=== PATIENT | male | born 1950 | race Caucasian/White ===

== ENCOUNTER 2024-09-27 09:34 | Outpatient (AMB) | payer MEDICARE, OTHER, SELFPAY ==
--- NOTE | 2024-09-27 09:55 | A.OFFPC_ITS ---
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 Intake Note: patient is scheduled for new patient visit to establish care with pcp patient decline to answer questionare [place] Administrator Required: No Allergies No Known Allergies Allergy (Verified 09/27/24 09:57) Medication List - Last Reconciled 09/27/24 by Eddie Kauffman MD clonidine HCl 0.1 mg PO BEDTIME hydralazine 50 mg PO TID insulin lispro protamin-lispro 100 unit/mL (50-50) 5 units subcut DAILY lisinopril 20 mg PO DAILY Tobacco use date assessed: 09/27/24 Fall risk assessment: No Falls in past year Last assessed Fall Risk: 09/27/24 Dental Screening Dental Screen Date: 09/27/24 Did you have a dental visit in the last 12 months?: Yes Did you have a dental problem in the last 6 months where you did not have access to dental care?: No Was dental information given to patient?: No 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 ?? Prior PCP:?Mirza Marr [place] Last office visit/CPE:? Acute issue(s):? A1c 6.7%. On Lantus and takes 15-17 units QPM & Lispro and counts carbs. 2-8. Morning BS 80-130 BP is too high L ear feels blocked - recently received Augmentin and then prednisone Saw ENT Dr Gentry Ferreira ENT & has follow-up ?? PMHx:? DM1, HTN, SocHx:? Moved from [place] this year, PFSH Family History (Updated 09/27/24 @ 10:12 by CALEB Rehman) Sister FH: mental illness Social History (Updated 09/27/24 @ 10:12 by CALEB Rehman) Housing: Condominium Patient Tobacco Use Status: Never used Tobacco e-Cigarette/Vaping Use: Never Used Second Hand Smoke Exposure: No service: No Current occupational status: retired Current occupational exposures/hazards: No Cognitive needs: Yes Hearing needs: No Vision needs: Yes Questionnaire PHQ-9 Over the last 2 weeks, how often have you been bothered by any of the following problems? 29029 - PHQ-9 Billing: Patient declined-do not bill Source: Developed by Drs. Kamari Tejada, Brenda Mckinney, Troy Harden and colleagues, with an educational oni from [employer] Thrive Questionnaire Date Thrive assessed: 09/27/24 I am a: Patient DIVYA-7 AMB Questionnaire DIVYA-7 Date DIVYA - 7 assessed: 09/27/24 Source: Developed by Drs. Kamari Tejada, Brenda Mckinney, Troy Harden and colleagues, with an educational oni from [employer] Review of Systems Const Denies chills, Denies fatigue, Denies fever(s), Denies headache(s) and Denies weakness ENT Denies dizziness and Denies headache(s) Card Denies chest pain, Denies lightheadedness, Denies dyspnea and Denies other (Palpitations) Resp Denies cough, Denies dyspnea, Denies wheezing and Denies other ( shortness of breath) Musc Denies numbness and Denies tingling Neuro Denies dizziness, Denies headache(s), Denies numbness, Denies tingling, Denies paresthesias and Denies weakness Psych Denies anxiety and Denies depression Endo Denies fatigue Aller/Immun Denies wheezing Physical exam (Primary Care) Vital Signs: Last Vital Signs Temp 98.1 F 09/27/24 10:14 Pulse 71 09/27/24 10:14 Resp 12 09/27/24 10:14 BP 170/70 H 09/27/24 10:14 Pulse Ox 95 09/27/24 10:14 Oxygen Delivery Method Room Air 09/27/24 10:14 BMI result Body Mass Index 26.1 Tobacco/Smoking Status: Tobacco use Status Tobacco use date assessed 09/27/24 09/27/24 10:16 Patient Tobacco Use Status Never used Tobacco 09/27/24 10:16 e-Cigarette/Vaping Use Never Used 09/27/24 10:16 Thrive Assessment: Date of Thrive Assessment Date Thrive assessed 09/27/24 09/27/24 10:16 Const General: no acute distress and well developed Nutritional Appearance: well nourished Orientation/consciousness: patient oriented x3 HENMT Head: Yes normocephalic and Yes atraumatic Eyes General: appearance normal, both eyes and all related structures Pupils: Equal, round and reactive pupils present EOM: EOMs intact bilaterally Resp Effort & Inspection: normal respiratory effort Auscultation: clear to auscultation bilaterally Cardio Rate: regular rate Rhythm: regular rhythm Heart sounds: S1 normal heart sound present, S2 normal heart sound present, no gallops, no murmurs and no rubs Neuro General: patient oriented x3 and gait normal Cranial nerves: Yes Equal, round and reactive pupils present Psych Affect: normal affect Coding Level of Care Code New Pt Level 4 (80672) Diagnoses Hypertension I10 Type 1 diabetes E10.9 Discomfort of left ear H92.02 Sinusitis J32.9 Laboratory exam ordered as part of routine general medical examination Z00.00 Assessment & Plan Assessment & Plan (1) Hypertension: Code(s): I10 - Essential (primary) hypertension Category: Medical Plan: Blood?pressure?is?high?in?office.??Goal?is?less?than?140/90. Patient?states?that?he?has?white?coat?syndrome?and?that?his?labs?are?well?contro lled?at?home. He? will?keep?a?log?of?his?blood?pressures?and?bring?these?to?his?next?appointment. (2) Type 1 diabetes: Code(s): E10.9 - Type 1 diabetes mellitus without complications Category: Medical Plan: Patient?says?he?type?1?diabetes.??Awaiting?his?prior?records. Patient?is?taking?Lantus?and?lispro. He?declines?referral?to?an?sales expert A1c?6.7%?is?good?control?and?goal?is?less?than?7.0%. Morning?blood?sugars?are?running?from?80-130?appear?controlled. He?will?continue?current?medication?regimen Will?continue?to?monitor (3) Discomfort of left ear: Code(s): H92.02 - Otalgia, left ear Category: Medical Plan: Patient?has?serous?otitis?media?bilaterally.??No?erythema?or?pus. Followed?by?ENT He?has?F lonase?and?I?advised?nasal?saline?but?not?within?30?minutes?of?his?nasal?steroid . Also?advised?Valsalva?maneuver?of?the?nose?and?he?chews?gum. Follow-up?with?ENT?as?recommended (4) Sinusitis: Code(s): J32.9 - Chronic sinusitis, unspecified Category: Medical Plan: As?above,?patient?ear?symptoms?secondary?to?chronic?sinusitis Follow-up?with?ENT?and?continue?above?recommendations. (5) Laboratory exam ordered as part of routine general medical examination: Code(s): Z00.00 - Encounter for general adult medical examination without abnormal findings Category: Medical Plan: Check?labs Orders: Orders Prostate Specific Antigen Scr Today Z12.5 - Encounter for screening for malignant neoplasm of prostate TSH reflex Free T4 Today Z00.00 - Encounter for general adult medical examination without abnormal findings Vitamin B12 and Folate Today E53.8 - Deficiency of other specified B group vitamins LDL Cholesterol Direct Today E78.5 - Hyperlipidemia, unspecified, Z00.00 - Encounter for general adult medical examination without abnormal findings Complete Blood Count Auto Diff Today Z00.00 - Encounter for general adult medical examination without abnormal findings Microalbumin, Random (w Creat) Today I10 - Essential (primary) hypertension Lipid Panel Today Z00.00 - Encounter for general adult medical examination without abnormal findings UA and rflx microscopic Today Z00.00 - Encounter for general adult medical examination without abnormal findings Vitamin D 25-OH Total Today E55.9 - Vitamin D deficiency, unspecified Comprehensive Met. Panel Today Z00.00 - Encounter for general adult medical examination without abnormal findings
[2024-09-27 10:14] VITALS: BP 170/70; PULSE 71; RESP 12; TEMP 36.7; O2SAT 95; BMI 26.1
[2024-09-27 10:30] VITALS: BP 160/84
--- OUTSIDE RECORDS SUMMARY | 2024-09-27 10:35 | XMS_ITS | Clinical Summary ---
Author Organization [facility] Address [address] [place] [address] Care Team Providers Care Poultry Picker Name Role Phone Unavailable Primary Care Provider Unavailabl e Allergies No known active allergies Medications Medication Sig Dispensed Refills Start Date End Date Status fluticasone (FloNASE) 50 mcg/spray nasal sprayIndications:Eusta chian tube dysfunction, bilateral 2 sprays into each nostril 2 times a day. 1 each 3 09/18/2024 Active Active Problems No known active problems Encounters Date Type Department Care Team Description 09/18/2024 9:45 AM EDT Clinical Support [facility] [place] [phone] Elton Rinaldi MD Eustachian tube dysfunction, bilateral (Primary Dx); Bilateral impacted cerumen; Abnormal auditory perception, left from Last 3 Months Social History Tobacco Use Types Packs/Day Years Used Date Smoking Tobacco: Never Assessed Sex and Gender Information Value Date Recorded Sex Assigned at Male 09/12/2024 1:43 PM EST Gender Identity Male 09/12/2024 1:43 PM EST Sexual Orientation Not on file Plan of Treatment Upcoming Encounters Date Type Department Care Team (Late st Contact Info) Description 10/16/2024 8:45 AM EDT Clinical Support [facility] [address] [phone] Tiffani Rodriguez Au.D [address] [place] [phone] 10/16/2024 9:30 AM EDT Office Visit [facility] [place] [phone] Elton Rinaldi MD [address] [place], [place] [id number] Health Maintenance Due Date Last Done Comments Hepatitis C Virus Screening 1950 DTaP/Tdap/Td Vaccines (1 - Tdap) 1968 Colonoscopy 1994 Pneumococcal Vaccines 50+ (1 of 1 - PCV) 11/08/1999 Zoster (Shingles) Vaccine (1 of 2) 11/08/1999 Influenza Vaccine 02/10/2024 COVID-19 Vaccine ( - 2023-2 5 season) 2024 RSV Vaccine 60 years and old er and Patients (1 - 1-dose 75+ series) 2024 Hepatitis B Vaccines Aged Out No long er eligible based on patient's age to complete this topic
--- OUTSIDE RECORDS SUMMARY | 2024-09-27 10:35 | XMS_ITS | Encounter Summary ---
Author Organization [facility] Address [address] [place] [id number] Care Team Providers Care Case Management Associate Name Role Phone Unavailable Primary Care Provider Unavailabl e Reason for Visit * Reason Comments Ear Fullness Encounter Details Date Type Department Care Team (Latest Contact Info) Description 09/18/2024 9:45 AM EDT Clinical Support [facility] [address] [phone] Elton Rinaldi MD [address] [place] [phone] Eustachian tube dysfunction, bilateral (Primary Dx); Bilateral impacted cerumen; Abnormal auditory perception, left Social History Tobacco Use Types Packs/Day Years Used Date Smoking Tobacco: Never Assessed Sex and Gender Information Value Date Recorded Sex Assigned at Male 09/12/2024 1:43 PM EST Gender Identity Male 09/12/2024 1:43 PM EST Sexual Orientation Not on file documented as of this encounter Progress Notes * Elton Rinaldi MD - 09/18/2024 9:45 AM EDT Images from the original note were not included. [address] [place] [phone] Loc: [phone] Encounter Date: 09/18/2024 Chief Complaint Patient presents with Ear Fullness 1. Eustachian tube dysfunction, bilateral 2. Bilateral impacted cerumen 3. Abnormal auditory perception, left ASSESSMENT AND PLAN Grey Foster is a 73-year-old male presenting with concerns of left ear distortion and discomfort. He has a history of sinus issues and has been treated with multiple rounds of antibiotics and prednisone for presumed ear infections without significant improvement. There is no current evidence of active infection or fluid in the ear. Examination revealed a thin sheet of wax tethering the eardrum, which was removed. The distortion may be related to eustachian tube dysfunction or residual inflammation from previous infections. 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 He describes a constant, mild headache on the sameside. Previous treatments included amoxicillin and prednisone without significant improvement. He denies any recent upper respiratory infections but has a history of sinus issues. Grey also mentions difficulty sleeping on his left side due to increased blockage sensation. PHYSICAL EXAM The patient was in no acute distress and breathing comfortably on exam. Examination of the ears, nose, oral cavity, oropharynx, and neck was completed and found to be within normal limits with the following notable exceptions and findings highlighted here: - Thin sheet of wax tethering the left eardrum to canal wall, removed during examination with microscope - No evidence of active infection or fluid in the ear - Tuning fork test: sound perceived equally on both sides, with slight preference to the right DIAGNOSTIC TESTING REVIEWED No diagnostic tests were performed during this visit. A formal audiogram or hearing test will be considered at the follow-up visit if symptoms persist. PROCEDURES CERUMEN REMOVAL: Binocular microscopy was used to evaluate both ears today with cerumen found to beobstructing both ear canals. Under microscopy, the cerumen was removed with curette and microinstruments with improvement in visualization and patient symptoms. PAST MEDICAL HISTORY History reviewed. No pertinent past medical history. History reviewed. No pertinent surgical history. History reviewed. No pertinent family history. MEDICATIONS No current outpatient medications on file. ALLERGIES Not on File VISIT ORDERS 1. Eustachian tube dysfunction, bilateral 2. Bilateral impacted cerumen 3. Abnormal auditory perception, left Elotn Rinaldi MD documented in this encounter Plan of Treatment Upcoming Encounters Date Type Department Care Team (Late st Contact Info) Description 10/16/2024 8:45 AM EDT Clinical Support [facility] [address] [phone] Tiffani Rodriguez Au.D [address] [place] [phone] 10/16/2024 9:30 AM EDT Office Visit [facility] [address] [phone] Elton Rinaldi MD [address] [place] [phone] documented as of this encounter Visit Diagnoses Diagnosis Eustachian tube dysfunction, bilateral- Primary Bilateral impacted cerumen Impacted cerumen Abnormal auditory perception, left documented in this encounter
--- OUTSIDE RECORDS SUMMARY | 2024-09-27 10:35 | XMS_ITS | Continuity of Care Document ---
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 ReliOn [place] 31 gauge x 1/4 insert 1 not specified by intramuscular route 4 times every day 1 not specified - Active finasteride 5 mg tablet TAKE ONE TABLET BY MOUTH EVERY DAY - Active losartan 100 mg tablet TAKE ONE TABLET BY MOUTH ONCE DAILY - Active Lantus 100 unit/mL subcutaneous solution 8 units sc at bedtime - Active Humalog 100 unit/mL subcutaneous solution INJECT 4 UNITS SUBCUTANEOUSLY THREE TIMES A DAY WITH FOOD OR 15 MINUTES BEFORE MEALS - Active ReliOn Thin Lancets 26 gauge insert 1 not specified by intradermal route 4 times every day 1 not specified - Active box of 100 ReliOn Prime Meter As directed for TID testing - Active Dx. 250.01 Colace 50 mg capsule 1 PO daily - Active Ceftin 500 mg tablet take 1 tablet by oral route every 12 hours for 2 weeks - Active Metamucil Clear-Natural (inulin) 5 gram/5.8 gram oral powder 1 Scoop of Powder daily - Active ReliOn Prime Test Strips Use with glucometer 3 times every day for 30 days to test blood sugar - No Longer Active box of 100 Dx. E10.9 Advance Directives Directive Yes / No Effective Date File Name No Information Encounters Encounter Description Practice Location Reason(s) For Visit Diagnoses Date Provider Providers Copied on Encounter [address] [place], [place], [id number], [place] tel:[phone] [facility] No Information 6 Alatar Joellen. [address] [place] [address], [facility], . tel:[phone] [place] [address] [place], [place], [id number], tel:[phone] [facility] No Information 6 Alatar Joellen. [address] [place] [address], [facility], . tel:[phone] [place], [place], [id number], [place] tel:[phone] [facility] No Information 6 Alatar Joellen. [address] [place] [address], [facility], . tel:[phone] [place], [address], [place] tel:[phone] [facility] No Information 2- 6 Jordan Almeida. [address], [address], [place], [place], [id number], [place]. tel:[phone] [place], [address], [place] tel:[phone] [facility] No Information 1 6 Jordan Almeida. [address], [address], [place], [place], [id number], [place]. [phone] [place], [address], [place] tel:[phone] [facility] No Information 6 Jordan Almeida. [address], [address], [place], [place], [address], [place]. tel:[phone] [place], [address], [place] tel:[phone] [facility] Encounter for screening for malignant neoplasm of colon 6 Jordan Almeida. [address], [address], [place], [place], [address], [place]. tel:[phone] Referring Provider: Sánchez Mann [facility] , [place], [address] . tel:[phone] [place], [id number], [place] tel:[phone] [facility] Encntr for general adult medical exam w/o abnormal findings 6 Jordan Almeida. [address], [address], [place], [place], [address], [place]. tel:[phone] Referring Provider: Sánchez Mann [facility] , [place], [address] . tel:[phone] [place], [id number], [place] tel:[phone] [facility] Medicare preventive (chief complaint) Encounter for general adult medical exam w abnormal findingsOther hyperlipidemi aType 1 diabetes mellitus without complications Essential (primary) hypertensionE ncounter for screening for malignant neoplasm of prostate 5 Jordan Almeida. [address] [facility] [address], [place], [address], [place]. tel:[phone] Referring Provider: Sánchez Mann [facility] , [place], [address] . tel:[phone] , [place], [place], [address], [place] tel:[phone] [facility] Other intermediate (current) drug therapyType 1 diabetes mellitus without complications Other hyperlipidemi aEncounter for screening for malignant neoplasm of prostate 0 5 Jordan Almeida. [address] [facility], [address], [place], [address], [place]. tel:[phone] Referring Provider: Sánchez Mann [facility] , [place], [address] . tel:[phone] [place], [place], [address], [place] tel:[phone] [facility] No Information 5 Cathy Sofia. Sánchez [facility] Dr [place], [place], [address], [place]. tel:[phone] [place], [place], [address], [place] tel:[phone] [facility] No Information 5 Cathy Sofia. [address] [facility] [address] [place], [address], [place]. tel:[phone] [place], [place], [address], [place] tel:[phone] [facility] Sinus symptoms (acute) (chief complaint) Sinusitis 5 Cathy Sofia. [address] [facility] , [place], [place], [address], [place]. tel:[phone] Referring Provider: Sánchez Mann [facility] [place], [address] . tel:[phone] [place], [place], [address], [place] tel:[phone] [facility] Preventive exam (chief complaint)d iabetes (chief complaint)h yperlipidem ia (chief complaint)h ypertension (chief complaint) ROUTINE MEDICAL EXAMDM, UNCOMPLICATED , TYPE I (250.01)HYPER LIPIDEMIA NEC/NOS (272.4)Prosta te cancer screeningEnco unter for current intermediate use of high risk medication 4 Cathy Sofia. [address] [place] [address] , [place], [place], [address], [place]. tel:[phone] Referring Provider: Sánchez Mann [facility] , [place], [address] . tel:[phone] [place] [address] [place], [place], [address], [place] tel:[phone] [facility] Routine general medical examination at a health care facilityDiabe daniel mellitus without mention of complication, type I [juvenile type], not stated as uncontrolledO ther and unspecified hyperlipidemi aNeoplasm of uncertain behavior of prostate 4 Cathy Sofia. [address] [facility] , [place], [place], [address], [place]. [phone] Referring Provider: Sánchez Mann [facility] , [place], [address] . tel:[phone] [place], [address], [place] tel:[phone] [facility] No Information 4 Provider Conversion. . 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 [address] [place] [address], [address], [place]. [address] [place], [address], [place] tel:[phone] [facility] No Information 4 Unidentified Provider. [address] [place] [address], [address], [place]. [address] [place], [address], [place] tel:[phone] [facility] Long-term (current) use of other medicationsDi abetes mellitus without mention of complication, type I [juvenile type], not stated as uncontrolledN eoplasm of uncertain behavior of prostate 3 Cathy Sofia. [address] [facility] , [place], [place], [address], [place]. tel:[phone] [place] [address] [place], [address], [place] tel:[phone] [facility] Diabetes mellitus without mention of complication, type I [juvenile type], not stated as uncontrolled 3 Cathy Sofia. [address] [facility] [address] [place], [address], [place]. tel:[phone] [place] [address] [place], [address], [place] tel:[phone] [facility] Long-term (current) use of other medicationsDi abetes mellitus without mention of complication, type I [juvenile type], not stated as uncontrolled 3 Cathy Sofia. [address] [facility] [address] [place], [address], [place]. tel:[phone] [place] [address] Dr, [place], [place], [address], tel:[phone] [facility] No Information 9-201 3 Unidentified Provider. [address] [place] [address], [address], . [address] , [place], [place], [address], tel:[phone] [facility] No Information 4-201 3 Unidentified Provider. [address] [place] [address], [address], [place]. [address] , [place], [place], [address], [place] tel:[phone] [facility] No Information 0-201 2 Cathy Sofia. [address] [facility] , [place], [place], [address], [place]. tel:[phone] [place] [address] , [place], [place], [address], [place] tel:[phone] [facility] No Information 5- 2 Unidentified Provider. [address] [place] [address], [address], [place]. [address] , [place], [place], [address], [place] tel:[phone] [facility] No Information 1 Unidentified Provider. [address] [place] [address], [address], . [address] , [place], [place], [address], [place] tel:[phone] [facility] No Information 0 4-201 1 Cathy Sofia. [address] [facility] , [place], [place], [address], [place]. tel:[phone] [place] [address] , [place], [place], [address], [place] tel:[phone] [facility] No Information Girish-0 2-200 5 Cathy Sofia. [address] [facility] , [place], [place], [address], [place]. tel:[phone] , [place], [place], [address], [place] tel:[phone] [facility] No Information 1 Cathy Sofia. [address] [facility] , [place], [place], [address], [place]. tel:[phone] Family History Family Member Type Diagnosis Age At Onset Father Problem (finding) congestive heart failur e Family H/O Problem (finding) FHX: CHF Immunizations Vaccine Date Status Comments Pneumococcal conjugate PCV 13 administere d Source: New Immunization Record Influenza, injectable, quadrivalent, preservative free, 3 yrs or older administered Source: Other Provi marissa Influenza, seasonal, injectable, preservative free, 3 yrs or older administered Source: Other Provid er Influenza (3 years and up) administered N ote: Recorded 05/02/2013 9:32AM by Kiersten Nicole CMA, Review ; Source: New Immunization Record Tdap (7 years and up) administered Note: Recorded 02/01/2013 3:40PM by Kiersten Nicole CMA, Historical Summary ; Source: New Immunization Record Tdap (7 years and up) administered Note: Recorded 06/06/2012 4:08AM by Bismark Morgan MD, Office Visit ; Source: New Immunization Record Influenza (3 years and up) administered N ote: Recorded 05/31/2012 1:44PM by Kiersten Nicole CMA, Office Visit ; Source: New Immunization Record Zoster (shingles) administered Note: Leon rded 05/31/2012 1:44PM by Kiersten Nicole CMA, Office Visit ; Source: New Immunization Record Zoster (shingles) administered Note: Leon rded 04/19/2011 10:34AM by Bismark Morgan MD, Office Visit ; Source: New Immunization Record Pneumococcal (2 years and up) administere d Note: Recorded 12/29/2010 8:08PM by Bismark Morgan MD, Office Visit ; Source: New Immunization Record Td, preservative free (7 yea rs and up) administered Note: Recorded 12/29 8:09PM by Bismark Morgan MD, Office Visit ; Source: New Immunization Record Payers Payer name Insurance type Covered green party ID [place] Medicare - [id number] [facility] - [id number] Medicare - [id number] [facility] Supplement - [id number] Social History Type Description Quantity Date Captured Comments Sex Male Smoking Status No Information Chief Complaint And Reason For Visit No Information Reason For Referral Reason For Referral No Information Plan Of Treatment Date Type Action Status Goal FOBT. Due on due Goal Abdominal ultrasound. Due on due Goal GFR. Due on due Goal Colonoscopy. Due on due Goal Foot exam. Due on due Goal Cognitive assessment. Due on due Goal Physical Exam. Due on due Goal Dental exam. Due on due Goal Dilated eye exam. Due on November due Goal Depression screening. Due on due Goal Physical Exam. Due on due Goal GFR. Due on due Goal FOBT. Due on due Goal Dilated eye exam. Due on November due Goal Abdominal ultrasound. Due on due Goal Influenza vaccine. Due on due Goal Dental exam. Due on due Goal Foot exam. Due on due Goal Depression screening. Due on due Goal Cognitive assessment. Due on due Goal Colonoscopy. Due on due Goal GFR. Due on due Goal FOBT. Due on due Goal Dental exam. Due on due Goal Colonoscopy. Due on 015 due Goal Sigmoidoscopy. Due on due Goal Dental exam. Due on 014 due Goal GFR. Due on due Goal Urinalysis due Referral Ordered: CT Heart w/o contrast (Calcium Scoring) ordered History Of Present Illness Encounter Date Complaint History Of Prese nt Illness Medicare preventive The patient has not felt depressed and has had interest and pleasure doing things recently. SLUMS assessment completed, with a total score of 29, Normal. The ''Up and Go'' test took less than 30 seconds and the patient does not need help with activities of daily living.The patient is not at risk for falls.The patient has not fallen in the last year. The patient has smoke detectors in the home. Patient reports using a seatbelt in vehicles. Patient denies recent weight gain. Patient denies recent weight loss. Relevant history is positive for tobacco use, alcohol use. Medicare preventive (comments) T his is a 64 y/o male who presents for CPE:-Pt states he is doing well, denies any complaints Sinus symptoms (acute) Symptoms are associated with tobacco use. Associated symptoms include nasal drainage and sinus pressure. Pertinent negatives include cough. Additional information: Sinus throbbing intermittent pain that partially resolved with Ceftin, but now worsening once off Ceftin. hyperlipidemia The diabetes is controlled. The hyperlipidemia is getting worse. Risk factors include age over 50, family history of CAD, family history of DM and family history of HTN. The patient is adhering to follow-up, diet and exercise for their hyperlipidemia. The patient is adhering to medication, follow-up and diet for their diabetes management. The patient is managing diabetes with diet and injected insulin. Hyperlipidemia management includes improved diet and increased exercise. Pertinent negatives include chest pain, dysesthesias, dyspnea and foot ulcer. hypertension The severity has been described as being moderate. Comorbid conditions include diabetes mellitus. It is currently stable. Risk factors include age over age 60, family history HTN, gout or CAD and male gender. Pertinent negatives include chest pain, dyspnea and irregular heartbeat/palpitations. Preventive exam Men's preventive visit. diabetes The problem is s table. Risk factors include: family history diabetes mellitus and over age 4545 years old. Patient is compliant with using medication, follow-up, and using education materials. He Has been managed with diet and insulin. Comorbidity: Hypertension. Pertinent negatives include blurred vision, burning of extremities, chest pain, dysesthesias, dyspnea and foot ulcers. Functional Status Date Functional Assessmen t No Information Instructions Date Instruction Additional Infor rob reviewed labs in det ail with patient discussed healthy diet, exercise and weight reductiondiscussed importance of bp, glucose and cholesterol controllow fat DietContinue current medications Related to Other hyperlipidemia reviewed labs in det ail with patient discussed healthy diet, exercise and weight reductiondiscussed importance of bp, glucose and cholesterol controlGoal bp <140/90diabetic DietContinue current medications Related to Type 1 diabetes mellitus without complications reviewed labs in det ail with patient discussed healthy diet, exercise and weight reductiondiscussed importance of bp, glucose and cholesterol controlGoal bp <140/90Dash DietContinue current medications Related to Essential (primary) hypertension review of all histor ies, medications, screening exams, labs and immunizations.discussed healthy diet, exercise and weight reductiondiscussed [place] Advanced directives website with patient. This office will honor Advanced directives of patient.Discussed importance of screening exams and immunizationsContinue f/u with specialistsContinue Current medicationsF/u 1 year for CPE with labs Related to Encounter for general adult medical exam w abnormal findings Counseled on dietary changes Re-check once infection resolved Re-start Ceftin 500 mg BID for 2 wks. along with a probioticFollow up for X-rays if another relapse or no initial improvement Related to Sinusitis DASHBP Diary Diet and exercise Related to HYP ERLIPIDEMIA NEC/NOS (272.4) Diet and exercise Related to DM, UNCOMPLICATED, TYPE I (250.01) Assessments Type Assessment Date No Information Patient Care Teams Name Effective Dates (start - stop) Status Members No Information
--- OUTSIDE RECORDS SUMMARY | 2024-09-27 10:35 | XMS_ITS ---
Author Name [facility] Organization Unknown History of Medication Use Medication Directions Dispensed Refills Start Date End Date Stat us fluticasone (FloNASE) 50 mcg/spray nasal spray 2 sprays into each nostril 2 times a day. 09/18/2024 active Problems Problem Status Onset Date Problem Type Date of Resoluti on Source Bilateral impacted cerumen active EncounterDiagnosisAct [facility]CT Abnormal auditory perception, left active EncounterDiagnosisAct HH CCT Eustachian tube dysfunction, bilateral active EncounterDiagnosisAct HHCCT Encounters Encounter Type Encounter Reason Primary Diagnosis Location Date Ambulatory [facility] 09/18/2024 Care Team Organization Name Specialty Phone Email Start Date End [facility] 09/12/2024
== END 2024-09-27 11:02 | disposition home or self-care (01) ==
PROVIDERS: PCP Family Medicine; Visit Provider Family Medicine
DX: I10 Essential (primary) hypertension (principal); E10.9 Type 1 diabetes mellitus without complications; H92.02 Otalgia, left ear; J32.9 Chronic sinusitis, unspecified; Z00.00 Encounter for general adult medical examination without abnormal findings

== ENCOUNTER → 2024-09-27 09:34 | Outpatient (BNVA) | payer MEDICARE, SELFPAY | PROVIDERS: PCP Family Medicine; Visit Provider Family Medicine | DX: Z00.00 Encounter for general adult medical examination without abnormal findings (principal); I10 Essential (primary) hypertension; E10.9 Type 1 diabetes mellitus without complications; H92.02 Otalgia, left ear; J32.9 Chronic sinusitis, unspecified; E53.8 Deficiency of other specified B group vitamins; E55.9 Vitamin D deficiency, unspecified; E78.5 Hyperlipidemia, unspecified | CPT/HCPCS: 99202 ==

== ENCOUNTER 2024-09-27 11:17 | Outpatient (REF) | payer MEDICARE, OTHER, SELFPAY ==
[2024-09-27 14:12] LABS: MANUAL DIFF FLAG NO
[2024-09-27 14:23] LABS: Appearance Urine Clear; Color Urine Yellow; Glucose Urine UA 250 mg/dL (Negative); Leukocyte Esterase Urine Negative (Negative); Nitrite Urine Negative (Negative); PH 7.5 (5.0-9.0); Urine Blood Negative (Negative); Urine Ketones Negative (Negative); Urine Protein Negative (Neg-Trace)
[2024-09-27 14:31] LABS: Basophils Percent Auto 0.6 % (0-2); Eosinophils Percent Auto 0.9 % (0-4); Hematocrit 39.5 % (42.0-52.0); Hemoglobin 13.9 g/dl (14.0-18.0); Imm Gran Abs Auto 0.03 X10*3/uL (0.00-0.03); Imm Gran Pct Auto 0.9 % (0.0-0.4); Lymphocytes Absolute Auto 0.3 X10*3/uL (1.2-4.9); Lymphocytes Percent Auto 9.1 % (20-40); Mean Corpuscular HGB Conc 35.2 g/dl (31.0-36.0); Mean Corpuscular Hemoglobin 30.9 pg (27.0-33.0); Mean Corpuscular Volume 87.8 fL (80.0-98.0); Mean Platelet Volume 8.8 fL (9.4-12.4); Monocytes Absolute Auto 0.3 X10*3/uL (0.1-1.2); Monocytes Percent Auto 8.5 % (2-11); Neutrophils Absolute Auto 2.6 x10*3/uL (2.0-8.3); Platelet Count 152 X10*3/uL (160-400); Red Cell Distribution Width 13.2 % (11.0-16.0); White Blood Count 3.3 X10*3/uL (4.8-10.8)
[2024-09-27 14:49] LABS: Alanine Aminotransferase 30 U/L (0-40); Albumin Level 3.9 g/dL (3.5-5.0); Alkaline Phosphatase 75 U/L (39-117); Anion Gap 11 (12-20); Aspartate Amino Transferase 43 U/L (5-37); Blood Urea Nitrogen 16 mg/dL (9-16); Calcium 8.9 mg/dL (8.4-10.2); Carbon Dioxide 27 mmol/L (22-29); Chloride 103 mmol/L (96-108); Cholesterol 133 mg/dL (<200); Estimated Glomerular Filt Rate > 60; Glucose Random 227 mg/dL (60-115); HDL Cholesterol 61 mg/dL (>40); LDL Cholesterol Calculated 62 mg/dL (<100); Potassium 3.8 mmol/L (3.3-5.1); Sodium 137 mmol/L (135-145); Total Protein 7.1 g/dL (6.5-8.0); Triglycerides 51 mg/dL (<150)
[2024-09-27 14:59] LABS: TSH reflex Free T4 0.95 uIU/mL (0.32-4.0)
[2024-09-27 15:13] LABS: Folate 8.4 ng/mL (> or = 4.0)
[2024-09-27 15:23] LABS: Microalbum/Creatinine Ratio Ur 31.2 ug/mg cr (<30)
[2024-09-27 15:42] LABS: Prostate Specific Antigen Scr 3.16 ng/mL (<0.05-4.0); Vitamin B12 483 pg/mL (200-900)
[2024-09-28 05:59] LABS: LDL Cholesterol Direct 61 mg/dL (<100)
== END 2024-09-27 11:18 | disposition home or self-care (01) ==
LOC: HO.WFDLDS 11:17
PROVIDERS: Visit Provider Family Medicine
DX: Z00.00 Encounter for general adult medical examination without abnormal findings (principal); I10 Essential (primary) hypertension; E10.9 Type 1 diabetes mellitus without complications; H92.02 Otalgia, left ear; J32.9 Chronic sinusitis, unspecified; E53.8 Deficiency of other specified B group vitamins; E55.9 Vitamin D deficiency, unspecified; E78.5 Hyperlipidemia, unspecified; Z12.5 Encounter for screening for malignant neoplasm of prostate
CPT/HCPCS: 36415; 80053; 80061; 81003; 82043; 82306; 82570; 82607; 82746; 83721; 84153; 84443; 85025; 99202